=== PATIENT | male | born 1965 | race Caucasian/White ===

== ENCOUNTER → 2021-03-15 | Outpatient (CLI) | payer BC ==
--- NOTE | 2021-03-15 12:22 | RAD ---
EXAM: Chest, 2 views. HISTORY: Acute bronchitis. Covid 19. COMPARISON: None. FINDINGS: 2 views of the chest are obtained. There is diffuse peripheral predominant interstitial and alveolar infiltrate. No pleural effusion or pneumothorax is seen. The heart is normal in size. IMPRESSION: Diffuse peripheral predominant mixed interstitial and alveolar infiltrate. This pattern c an be seen with Covid 19 pneumonia. Electronically signed by: Sandy Davison MD (03/15/2021 12:19 PM) [id number]
== END ==
LOC: RAD 12:04
PROVIDERS: ATTEND Internal Medicine
DX: J20.9 Acute bronchitis, unspecified (principal); Z86.16 Personal history of COVID-19
CPT/HCPCS: 71046